=== PATIENT | female | born 1990 | race Caucasian/White ===

== ENCOUNTER 2019-03-30 15:35 | Emergency (ER) | payer SELFPAY ==
[2019-03-30] MEDS: ACETAMINOPHEN 325 MG TAB PO (16:22)
[2019-03-30] MEDS: METHOCARBAMOL 750 MG TAB PO (16:25)
[2019-03-30] MEDS ORDERED: KETOROLAC 15 MG INJ IM (17:29)
[2019-03-30] MEDS ORDERED: METHOCARBAMOL 500 MG TAB PO (17:30)
[2019-03-30] MEDS: NAPROXEN 500 MG TAB PO (19:01)
== END 2019-03-30 19:04 | disposition home or self-care (01) ==
LOC: FTE 15:35
DX: M25.511 Pain in right shoulder (principal); M54.2 Cervicalgia; M54.9 Dorsalgia, unspecified; R51 Headache
CPT/HCPCS: 70450; 73030-RT; 81025; 99284-25